=== PATIENT | female | born 1990 | race Caucasian/White ===

== ENCOUNTER 2021-02-15 10:56 | Emergency (ER) | payer OTHER ==
[2021-02-15 13:07] LABS: BILIRUBIN NEGATIVE (NEGATIVE); BLOOD NEGATIVE Ery/uL (NEGATIVE); CLARITY CLEAR (CLEAR); COLOR YELLOW (YELLOW); GLUCOSE (U) NORMAL (NORMAL); LEUKOCYTES 1+ Leu/uL (NEGATIVE); NITRITE NEGATIVE (NEGATIVE); PROTEIN NEGATIVE (NEGATIVE); UROBILINOGEN 0.2 mg/dL (0.2-1.0); pH 6.5 (5.0-9.0)
[2021-02-15 13:20] LABS: BACTERIA 1+
[2021-02-15] MEDS ORDERED: PYRIDIUM100 MG PO (13:47)
== END 2021-02-15 14:10 | disposition home or self-care (01) ==
LOC: FER 10:56
PROVIDERS: Nurse Practitioner Family
DX: R30.0 Dysuria (principal); Z90.49 Acquired absence of other specified parts of digestive tract
CPT/HCPCS: 81001; 87088

== ENCOUNTER 2021-09-03 14:17 | Emergency (ER) | payer OTHER ==
[~2021-09-03 14:17] MED LIST: PYRIDIUM100 MG PO
[2021-09-03 15:33] LABS: BUN/CREAT RATIO (CALC) 19.2 RATIO; CREATININE 0.73 mg/dL (0.51-0.95); POTASSIUM 3.8 mmol/L (3.5-5.1)
[2021-09-03 15:35] LABS: HCT 40.1 % (37.0-47.0); HGB 13.7 g/dl (12.5-16.0); LYMPHOCYTE 48.3 % (15-48); MCHC 34.2 g/dL (32.0-36.0); MCV 87.9 fL (78.0-100.0); MONOCYTE 7.3 % (0-12); MPV 8.9 fL (6.0-9.5); NEUTROPHIL 36.1 % (41-80); NRBC 0; PLT 336 K/uL (150-400); RBC 4.56 M/uL (4.20-5.40)
[2021-09-03 15:46] LABS: BILIRUBIN NEGATIVE (NEGATIVE); BLOOD 1+ Ery/uL (NEGATIVE); CLARITY CLEAR (CLEAR); COLOR YELLOW (YELLOW); GLUCOSE (U) NORMAL (NORMAL); LEUKOCYTES TRACE Leu/uL (NEGATIVE); NITRITE NEGATIVE (NEGATIVE); PROTEIN NEGATIVE (NEGATIVE); SPECIFIC GRAVITY <=1.005 (1.001-1.030); UROBILINOGEN 0.2 mg/dL (0.2-1.0); pH 5.5 (5.0-9.0)
[2021-09-03 15:48] LABS: AMPHETAMINES NEGATIVE (NEGATIVE); BARBITURATES NEGATIVE (NEGATIVE); ECSTASY (MDMA) NEGATIVE (NEGATIVE); MARIJUANA (THC) NEGATIVE (NEGATIVE); METHADONE NEGATIVE (NEGATIVE); OPIATES NEGATIVE (NEGATIVE); OXYCODONE NEGATIVE (NEGATIVE)
[2021-09-03 16:01] LABS: BACTERIA TRACE; URINARY WBC RARE
== END 2021-09-03 16:51 | disposition home or self-care (01) ==
LOC: FER 14:17
PROVIDERS: Nurse Practitioner Family
DX: R20.2 Paresthesia of skin (principal)
CPT/HCPCS: 36415; 80048; 80305; 81001; 85025; 99284